=== PATIENT | female | born 1970 | race Caucasian/White ===

== ENCOUNTER 2020-11-11 00:45 | Emergency (ER) | payer MEDICAID ==
[~2020-11-11] VITALS: Ht 157.5 cm; Wt 97.5 kg
[2020-11-11 00:49] VITALS: BP 138/70
--- NOTE | 2020-11-11 00:55 | NUR ---
PT TAKEN TO BED 11
[2020-11-11] MEDS ORDERED: PANTOPRAZOLE 40 MG TABEC PO ONE (01:00)
[2020-11-11] MEDS ORDERED: IBUPROFEN 400 MG TAB PO ONE (01:00)
[2020-11-11] MEDS ORDERED: ASPIRIN 325 MG TAB PO ONE (01:00)
[2020-11-11] MEDS ORDERED: NITROGLYCERIN 0.4 MG TAB SL ONE (01:00)
--- NOTE | 2020-11-11 01:00 | NUR ---
PATIENT PRESENTS TO ED WITH C/O OF CHEST PAIN. PT. IS ONLY PRYDEINIG SPEAKING. SKIN IS PINK/WARM/DRY; AAOX4 WITH EVEN AND STEADY GAIT; HR EVEN AND REGULAR; PT DENIES ANY FEVER, CP, SOB, OR COUGH AT THIS TIME; VSS; PATIENT POSITIONED FOR COMFORT; HOB ELEVATED; BEDRAILS UP X2; BED DOWN. ER MD MADE AWARE OF PT STATUS.
--- NOTE | 2020-11-11 01:07 | NUR ---
LAB AT BEDSIDE.
--- NOTE | 2020-11-11 01:10 | NUR ---
X-Ray at bedside.
[2020-11-11 01:16] LABS: BASOPHILS # (AUTO) 0.2 K/uL (0.00-0.22); BASOPHILS % (AUTO) 1.4 % (0.0-2.0); EOSINOPHILS # (AUTO) 0.4 K/uL (0-0.4); EOSINOPHILS % (AUTO) 3.4 % (0.0-4.0); HEMATOCRIT 36.6 % (36-48); HEMOGLOBIN 11.8 g/dL (12.0-16.0); LYMPHOCYTES # (AUTO) 3.2 K/uL (2.5-16.5); MEAN CORPUSCULAR HEMOGLOBIN 25 pg (27-31); MEAN CORPUSCULAR HGB CONC 32 g/dL (33-37); MEAN CORPUSCULAR VOLUME 77.3 fL (80-94); MONOCYTES % (AUTO) 7.4 % (1.7-9.3); NEUTROPHILS # (AUTO) 8.1 K/uL (1.8-7.7); NEUTROPHILS % (AUTO) 62.8 % (42.2-75.2); PLATELET COUNT (AUTO) 278 K/uL (140-450); RED BLOOD CELL COUNT(AUTO) 4.73 MIL/uL (4.20-5.40); RED CELL DISTRIBUTION WIDTH 18.5 % (11.6-13.7); WHITE BLOOD COUNT (AUTO) 12.9 K/uL (4.8-10.8)
[2020-11-11 01:29] LABS: ALBUMIN 3.6 g/dL (3.4-5.0); CARBON DIOXIDE 25.9 mmol/L (21-32); CREATININE 0.7 mg/dL (0.6-1.3); POTASSIUM 3.9 mmol/L (3.5-5.1); TOTAL BILIRUBIN 0.4 mg/dL (0.0-1.0)
--- NOTE | 2020-11-11 02:44 | NUR ---
LAB AT BEDSIDE.
[2020-11-11 03:20] VITALS: BP 125/69
--- NOTE | 2020-11-11 03:20 | NUR ---
Patient discharged with v/s stable. Written and verbal after care instructions given and explained. Patient verbalized understanding. Ambulatory with steady gait. All questions addressed prior to discharge. Advised to follow up with PMD.
== END 2020-11-11 03:20 | disposition home or self-care (01) ==
LOC: MED 00:45
DX: R07.89 Other chest pain (principal)
CPT/HCPCS: 36415; 71045; 80053; 84484; 85025; 93005; 99285